=== PATIENT | male | born 1965 | race Caucasian/White ===

== ENCOUNTER → 2018-09-07 | Outpatient (CLI) | payer BC | LOC: CARDREHAB 07:50 | DX: Z13.6 Encounter for screening for cardiovascular disorders (principal); E11.9 Type 2 diabetes mellitus without complications; I10 Essential (primary) hypertension | CPT/HCPCS: A9500 ==

== ENCOUNTER → 2019-08-28 | Outpatient (CLI) | payer BC | LOC: RAD 14:09 | DX: N50.3 Cyst of epididymis (principal) ==

== ENCOUNTER → 2020-08-25 | Outpatient (REF) | LOC: LAB 09:13 | DX: E11.9 Type 2 diabetes mellitus without complications (principal) ==

== ENCOUNTER 2023-02-17 10:27 | Emergency (ER) | payer BC ==
[~2023-02-17] VITALS: Ht 190.5 cm; Wt 128.6 kg
[2023-02-17] MEDS ORDERED: ROSUVASTATIN CA10 MG PO (10:33)
[2023-02-17] MEDS ORDERED: HYDROCHLOROTHIA1 T15 PO (10:33)
[2023-02-17] MEDS ORDERED: LISINOPRIL20 MG PO (10:34)
[2023-02-17 10:47] LABS: HEMATOCRIT 17.9 % (42.0-52.0); MEAN CELL VOLUME 100 fl (78-100); MEAN CORPUSCULAR HEMOGLOBIN 34 pg (27-31); MEAN CORPUSCULAR HGB CONC 34 g/dL (33-37); MEAN PLATELET VOLUME 10.4 fl (7.4-10.4); PLATELET COUNT 365 K/mm3 (130-400); RED CELL DISTRIBUTION WIDTH 13.4 % (11.5-14.5)
[2023-02-17 11:02] LABS: WHITE BLOOD COUNT 27.1 K/mm3 (4.8-10.8)
[2023-02-17 11:03] LABS: RED BLOOD COUNT 1.79 M/mm3 (4.20-5.60)
[2023-02-17 11:09] LABS: ALBUMIN 3.1 g/dL (3.5-5.0)
[2023-02-17 11:11] LABS: CALCIUM 8.1 mg/dL (8.3-10.5)
[2023-02-17 11:12] LABS: TOTAL PROTEIN 5.1 g/dL (6.4-8.3)
[2023-02-17 11:14] LABS: TOTAL BILIRUBIN 0.5 mg/dL (0.2-1.2)
[2023-02-17 11:19] LABS: BAND 3 % (0-10)
[2023-02-17 11:20] LABS: LYMPHOCYTE 13 % (20-51); MONOCYTE 5 % (3-10); NEUTROPHILS 72 % (42-75)
[2023-02-17 11:21] LABS: METAMYELOCYTE 2 % (0-0); MYELOCYTE 4 % (0-0); NUCLEATED RED BLOOD CELL 3 (0-6)
[2023-02-17 11:23] LABS: HYPOCHROMIA 2+
[2023-02-17 11:25] LABS: TROPONIN-I 0.031 ng/mL (<0.030)
[2023-02-17 17:45] VITALS: BP 115/55
[2023-02-17 18:18] LABS: URINE APPEARANCE CLEAR (CLEAR); URINE BILIRUBIN NEGATIVE (NEGATIVE); URINE BLOOD NEGATIVE (NEGATIVE); URINE COLOR YELLOW (YELLOW); URINE GLUCOSE NEGATIVE (NEGATIVE); URINE KETONE NEGATIVE (NEGATIVE); URINE LEUKOCYTE ESTERASE NEGATIVE (NEGATIVE); URINE NITRATE NEGATIVE (NEGATIVE); URINE PROTEIN(semi-quant) NEGATIVE (NEGATIVE)
[2023-02-17 21:41] LABS: FOLATE (FOLIC ACID) 4.9 ng/mL (2.0-20.0)
== END 2023-02-17 17:45 | disposition short-term general hospital (02) ==
LOC: ED 10:27
PROVIDERS: Nurse Practitioner
DX: U07.1 COVID-19 (principal); D64.9 Anemia, unspecified; E86.0 Dehydration; D72.819 Decreased white blood cell count, unspecified; N28.1 Cyst of kidney, acquired; N42.89 Other specified disorders of prostate; E66.9 Obesity, unspecified; Z68.35 Body mass index [BMI] 35.0-35.9, adult; Z73.0 Burn-out
CPT/HCPCS: J3010; J7030; Q9967

== ENCOUNTER → 2023-07-07 | Outpatient (CLI) | payer BC ==
[~2023-07-07] MED LIST: HYDROCHLOROTHIA1 T15 PO; LISINOPRIL20 MG PO; ROSUVASTATIN CA10 MG PO
[2023-08-28 16:18] LABS: ALBUMIN 3.5 g/dL (3.5-5.0); CALCIUM 9.2 mg/dL (8.3-10.5); TOTAL BILIRUBIN 0.6 mg/dL (0.2-1.2); TOTAL PROTEIN 6.8 g/dL (6.4-8.3)
[2023-08-28 16:25] LABS: BASO # 0.02 K/mm3 (0.02-0.10); EOS # 0.09 K/mm3 (0.04-0.40); EOS % 1.2 % (0.0-4.0); HEMATOCRIT 43.9 % (42.0-52.0); HEMOGLOBIN 14.8 g/dL (13.5-18.0); LYMPH# 0.69 K/mm3 (1.50-4.00); MEAN CELL VOLUME 88 fl (78-100); MEAN CORPUSCULAR HEMOGLOBIN 30 pg (27-31); MEAN CORPUSCULAR HGB CONC 34 g/dL (33-37); MEAN PLATELET VOLUME 9.8 fl (7.4-10.4); MONO # 0.96 K/mm3 (0.20-0.80); NEU # 5.89 K/mm3 (1.40-6.50); PLATELET COUNT 296 K/mm3 (130-400); RED BLOOD COUNT 4.98 M/mm3 (4.20-5.60); RED CELL DISTRIBUTION WIDTH 13.9 % (11.5-14.5); WHITE BLOOD COUNT 7.7 K/mm3 (4.8-10.8)
[2023-08-28 16:28] LABS: PH-URINE 5.5 (5.0 - 8.0); URINE APPEARANCE CLOUDY (CLEAR); URINE BILIRUBIN NEGATIVE (NEGATIVE); URINE BLOOD TRACE (NEGATIVE); URINE COLOR YELLOW (YELLOW); URINE GLUCOSE NEGATIVE (NEGATIVE); URINE KETONE NEGATIVE (NEGATIVE); URINE NITRATE NEGATIVE (NEGATIVE); URINE PROTEIN(semi-quant) NEGATIVE (NEGATIVE)
[2023-08-28 16:29] LABS: URINE LEUKOCYTE ESTERASE 1+ (NEGATIVE); URINE WBC >50 /hpf (0-3)
== END ==
LOC: LAB 16:00
PROVIDERS: Physician Assistant
DX: Z01.89 Encounter for other specified special examinations (principal)

== ENCOUNTER → 2023-08-29 | Outpatient (CLI) | payer BC ==
[2023-08-29 09:26] LABS: PH-URINE 5.5 (5.0 - 8.0); URINE APPEARANCE CLEAR (CLEAR); URINE BILIRUBIN NEGATIVE (NEGATIVE); URINE BLOOD NEGATIVE (NEGATIVE); URINE COLOR YELLOW (YELLOW); URINE GLUCOSE NEGATIVE (NEGATIVE); URINE KETONE NEGATIVE (NEGATIVE); URINE LEUKOCYTE ESTERASE NEGATIVE (NEGATIVE); URINE MUCUS PRESENT (NOT PRESENT); URINE NITRATE NEGATIVE (NEGATIVE); URINE PROTEIN(semi-quant) NEGATIVE (NEGATIVE)
== END ==
LOC: LAB 09:06
PROVIDERS: Family Medicine
DX: N30.90 Cystitis, unspecified without hematuria (principal)